=== PATIENT | female | born 1940 | race Caucasian/White ===

== ENCOUNTER 2016-10-24 15:21 | Emergency (ER) | payer OTHER ==
[2016-10-24] MEDS ORDERED: NS 0.9% 1000 ML* 1,000 ML IV ONE (15:50)
[2016-10-24] MEDS ORDERED: Acetaminophen TAB* 325 MG PO ONE (15:52)
[2016-10-24 16:13] LABS: Hematocrit 39 % (35-47); Hemoglobin 12.9 g/dl (12.0-16.0); Mean Corpuscular HGB Conc 34 g/dl (31-36); Mean Corpuscular Hemoglobin 31 pg (27-31); Mean Corpuscular Volume 93 fL (80-97); Mean Platelet Volume 8 um3 (7.4-10.4); Red Blood Count 4.14 10^6/ul (4.0-5.4); Red Cell Distribution Width 14 % (10.5-15)
--- NOTE | 2016-10-24 16:18 | ED ---
Dizziness - HPI Summary HPI Summary: Patient presents to ED for evaluation of dizziness which started yesterday after taking her newly prescribed medication Citalopram. Today after temple she took her dose again along with her BP medication and began to feel dizzy, with right sided pressure over frontal lobe and blurry vision. She immediately checked her BP (20 minutes after taking her BP medication) which was high. Patient was seen last February for a similar issue and BP at that time was 200/100. With medications, they were able to bring down the BP and discharge the patient home. Today, she is concerned for the same thing. She notes to 1x episode diarrhea yesterday, but nothing today. Denies N/V/C. Denies GREEN, but just notes to right sided pressure 2/10. Her PCP stated she may experience some blurry vision in the first few days of taking Citalopram, but for anything more concerning, she should come to ED. While she believe this is related to high BP, she notes it may also be d/t her new medication which she started yesterday. Otherwise feeling OK with no generalized malaise, cough, chest pressure or urinary symptoms. On arrival, BP 150/78. Patient is a diabetic. - History Of Current Complaint Chief Complaint: EDDizziness Stated Complaint: DIZZINESS,HIGH BP Time Seen by Provider: 10/24/16 15:39 Hx Obtained From: Patient Onset/Duration: Suddenly Timing: Minutes Severity Initially: Moderate Severity Currently: Moderate Character: Lightheaded, Dizzy Aggravating Factor(s): Headache - right sided pressure Alleviating Factor(s): Nothing Associated Signs And Symptoms: Positive: Visual Changes, Change In Medication - recently added citalopram - Risk Factors Cardiac Risk Factors: Hypertension, Diabetes, Elevated Lipids, Family History CVA Risk Factor: Hypertension, Diabetes - Allergies/Home Medications Allergies/Adverse Reactions: Allergies Allergy/AdvReac Type Severity Reaction Status Date / Time Codeine Allergy Intermediate Rash Verified 02/22/16 13:04 Penicillins [PCN] Allergy Rash Verified 02/22/16 13:04 PMH/Surg Hx/FS Hx/Imm Hx Previously Healthy: Yes Endocrine/Hematology History: Reports: Hx Diabetes Denies: Hx Anticoagulant Therapy, Hx Thyroid Disease Cardiovascular History: Reports: Hx Hypertension Denies: Hx Congestive Heart Failure, Hx Deep Vein Thrombosis, Hx Myocardial Infarction, Hx Pacemaker/ICD Respiratory History: Denies: Hx Asthma, Hx Chronic Obstructive Pulmonary Disease (COPD), Hx Lung Cancer, Hx Pneumonia, Hx Pulmonary Embolism GI History: Denies: Hx Gall Bladder Disease, Hx Gastrointestinal Bleed, Hx Ulcer, Hx Urosepsis History: Denies: Hx Kidney Stones, Hx Renal Disease Musculoskeletal History: Reports: Hx Arthritis, Hx Back Problems, Hx Orthopedic Injury - L knee Sensory History: Reports: Hx Contacts or Glasses, Hx Hearing Aid Opthamlomology History: Reports: Hx Contacts or Glasses Neurological History: Reports: Hx Headaches Denies: Hx Dementia, Hx Migraine, Hx Seizures, Hx Transient Ischemic Attacks (TIA) Psychiatric History: Denies: Hx Anxiety, Hx Depression, Hx Schizophrenia, Hx Bipolar Disorder - Cancer History Hx Chemotherapy: No Hx Radiation Therapy: No - Surgical History Surgery Procedure, Year, and Place: RIGHT HIP REPAIR 6YRS AGO. LEFT KNEE REPLACEMENT 1 YEAR AGO; 4 c sections; left rotator cuff; tubal ligation Infectious Disease History: No Infectious Disease History: Denies: Hx Clostridium Difficile, Hx Human Immunodeficiency Virus (HIV), Hx of Known/Suspected MRSA, Hx Shingles, Hx Tuberculosis, Hx Known/Suspected VRE, Hx Known/Suspected VRSA, History Other Infectious Disease, Traveled Outside the [place] in Last 30 Days - Family History Known Family History: Positive: Cardiac Disease, Diabetes - Social History Occupation: Retired Lives: With Family Alcohol Use: None Hx Substance Use: No Substance Use Type: Reports: None Hx Tobacco Use: Yes Smoking Status (MU): Former Smoker Type: Cigarettes Amount Used/How Often: 1ppd Length of Time of Smoking/Using Tobacco: 5 years Have You Smoked in the Last Year: No Review of Systems Constitutional: Negative Positive: Blurred Vision ENT: Negative Cardiovascular: Negative Respiratory: Negative Positive: no symptoms reported, see HPI Skin: Negative Positive: Headache - right sided pressure , Weakness - dizziness Psychological: Normal All Other Systems Reviewed And Are Negative: Yes Physical Exam Triage Information Reviewed: Yes Vital Signs On Initial Exam: Initial Vitals Temp Pulse Resp BP Pulse Ox 97.9 F 92 16 133/75 100 10/24/16 15:31 10/24/16 15:31 10/24/16 15:31 10/24/16 15:31 10/24/16 15:31 Vital Signs Reviewed: Yes Appearance: Positive: Well-Appearing, No Pain Distress, Well-Nourished Skin: Positive: Warm, Skin Color Reflects Adequate Perfusion Head/Face: Positive: Normal Head/Face Inspection Eyes: Positive: EOMI, RITIKA, Conjunctiva Clear, Other: - cataracts Neck: Positive: Nontender, No Lymphadenopathy Respiratory/Lung Sounds: Positive: Breath Sounds Present Cardiovascular: Positive: Normal, RRR Abdomen Description: Positive: Nontender Bowel Sounds: Positive: Present Musculoskeletal: Positive: Normal, Strength/ROM Intact Neurological: Positive: Sensory/Motor Intact, Alert, Oriented to Person Place, Time, Reflexes Intact, Normal Gait, Finger to Nose, Speech Normal Psychiatric: Positive: Normal AVPU Assessment: Alert - Herminia Coma Scale Best Eye Response: 4 - Spontaneous Best Motor Response: 6 - Obeys Commands Best Verbal Response: 5 - Oriented Coma Scale Total: 15 Diagnostics - Vital Signs Vital Signs Temp Pulse Resp BP Pulse Ox 10/24/16 16:10 97 10/24/16 16:09 16 10/24/16 16:08 97 148/66 10/24/16 16:07 94 20 148/66 97 10/24/16 16:04 74 18 109/83 97 10/24/16 16:00 77 19 130/64 97 10/24/16 15:44 83 97 10/24/16 15:43 150/68 10/24/16 15:31 97.9 F 92 16 133/75 100 - Laboratory Result Diagrams: 10/24/16 16:00 10/24/16 16:00 Lab Statement: Any lab studies that have been ordered have been reviewed, and results considered in the medical decision making process. Dizzy Course/Dx - Course Course Of Treatment: BP 150/78 on arrival. Patient still feeling right sided pressure over frontal lobe. Feeling dizzy. LABS ordered. Chest xray. All WNL. Tylenol 650mg for GREEN. Medications reviewed. DC Citalopram until you follow up with PCP. Patient agrees. BP WNL on discharge. - Diagnoses Differential Diagnosis/HQI/PQRI: Anxiety, Medication Reaction, Metabolic Abnormality Provider Diagnoses: Dizziness Discharge - Discharge Plan Condition: Stable Disposition: HOME Patient Education Materials: Lightheadedness (ED) Referrals: Anila Guerrero MD [Primary Care Provider] - Additional Instructions: Discontinue your dose of citalopram. Follow up with your PCP early next week. If you have worsening symptoms of lightheadedness or dizziness, return to ED immediately.
[2016-10-24 16:26] LABS: Albumin 4.1 g/dL (3.2-5.2); BUN/Creatinine Ratio 35.2 (8-20); Calcium 9.7 mg/dL (8.6-10.3); EGFR African American 102.9 (>60); Globulin 3.3 g/dL (2-4); Magnesium 1.5 mg/dL (1.9-2.7); Potassium 3.7 mmol/L (3.5-5.0); Total Bilirubin 0.4 mg/dL (0.2-1.0); Total Protein 7.4 g/dL (6.4-8.9); Troponin I 0.01 ng/mL (<0.04)
--- NOTE | 2016-10-24 16:45 | RAD ---
Indication: Dizziness. Single frontal view of the chest performed at 1605 hours was reviewed. Comparison is made with previous exam dated October 26, 2013. No mediastinal shift is noted. Heart is of normal size and configuration. Lung ugarte appear clear. IMPRESSION: NO ACTIVE CARDIOPULMONARY DISEASE IS NOTED.
[2016-10-24 17:10] LABS: TSH (Thyroid Stimulating Horm) 4.24 mcIU/mL (0.34-5.60)
[2016-10-24 17:50] VITALS: BP 131/62
== END 2016-10-24 17:49 | disposition home or self-care (01) ==
LOC: ED 15:21
DX: R42 Dizziness and giddiness (principal); R51 Headache; R53.1 Weakness
CPT/HCPCS: 36415; 71010; 80053; 82550; 83605; 83735; 84443; 84484; 85025; 85610; 93005; 99283; A9270-GY

== ENCOUNTER 2017-01-04 08:08 | Day surgery (SDC) | payer OTHER ==
[~2017-01-04 08:08] MED LIST: Lidocaine 1% INJ* 10 MG/ML 30 ML SDV ONE
[2017-01-04] MEDS ORDERED: Buffered Lidocaine 1% SYRIN* 5 ML/SYR SYRINGE ONE (08:43)
[2017-01-04] MEDS ORDERED: fentaNYL* 50 MCG/ML 2 ML VIAL (100 MCG VIAL) ONE (10:29)
[2017-01-04] MEDS ORDERED: Midazolam* 1 MG/ML 2 ML VIAL (2 MG) ONE (10:29)
[2017-01-04 10:59] VITALS: BP 132/76
--- NOTE | 2017-01-05 03:15 | OP ---
OPERATIVE REPORT: DATE OF OPERATION: 01/04/17 - LYDIA DATE OF : 40 SURGEON: Vanessa Dalton MD FORMATION FRACTURING OPERATOR: MAREK Feliz ANESTHESIOLOGIST: Giles Dupree MD ANESTHESIA: Local MAC. PRE-OP DIAGNOSES: Right carpal tunnel syndrome. POST-OP DIAGNOSES: Right carpal tunnel syndrome. OPERATIVE PROCEDURE: Right carpal tunnel release. ESTIMATED BLOOD LOSS: Zero. TOURNIQUET TIME: About 8 minutes. INDICATIONS FOR PROCEDURE: Xuan is a 76-year-old female with numbness and tingling in the median nerve distribution of her right hand. She presents for right carpal tunnel release. DESCRIPTION OF PROCEDURE: The patient was brought to the operating room. She was given a sedation anesthetic and a local infiltration of 10 cc of 1% plain lidocaine. The skin of her right hand and forearm was prepped and draped in the usual sterile fashion. The hand and forearm were exsanguinated and the tourniquet elevated to 250 mmHg. A longitudinal incision was made in the palm in line with the ring finger. We dissected through the subcutaneous tissue down to the transverse carpal ligament. The ligament was divided sharply with the knife and then more proximally with the scissors. The nerve was dissected free from the surrounding tissue and there is an area of moderate compression of the mid-portion of the ligament. The wound was irrigated. The skin edges were reapproximated with 4-0 nylon sutures. The wound was dressed with Xeroform , 4x4, Webril, and an Chun wrap. The patient tolerated the procedure well and was brought to the recovery room in good condition. [id number]/[facility] #: [id number] MTDPrasanth
== END 2017-01-04 11:22 | disposition home or self-care (01) ==
LOC: OREAST 08:08
PROVIDERS: ATTEND Orthopaedic Surgery
DX: G56.01 Carpal tunnel syndrome, right upper limb (principal); E11.9 Type 2 diabetes mellitus without complications; Z79.84 Long term (current) use of oral hypoglycemic drugs; I10 Essential (primary) hypertension; M19.90 Unspecified osteoarthritis, unspecified site
CPT/HCPCS: J2001; J2250; J3010

== ENCOUNTER 2018-01-06 10:28 | Emergency (ER) | payer MEDICARE ==
[2018-01-06 11:10] LABS: ABS Basophils 0.1 10^3/ul (0-0.2); ABS Eosinophils 0 10^3/ul (0-0.6); ABS Lymphocytes 1.7 10^3/ul (1.0-4.8); ABS Monocytes 0.5 10^3/ul (0-0.8); ABS Neutrophils 5.3 10^3/ul (1.5-7.7); ABS Nucleated RBC 0 10^3/ul; Eosinophil % 0.6 % (0-6); Hematocrit 39 % (35-47); Hemoglobin 13.2 g/dl (12.0-16.0); Lymphocyte % 22.1 % (25-47); Mean Corpuscular HGB Conc 34 g/dl (31-36); Mean Corpuscular Hemoglobin 32 pg (27-31); Mean Corpuscular Volume 94 fL (80-97); Mean Platelet Volume 7.4 um3 (7.4-10.4); Nucleated Red Blood Cells % 0; Platelet Count 260 10^3/ul (150-450); Red Cell Distribution Width 15 % (10.5-15); White Blood Count 7.5 10^3/ul (3.5-10.8)
[2018-01-06] MEDS ORDERED: Meclizine TAB* 12.5 MG PO ONE (11:15)
--- NOTE | 2018-01-06 11:32 | RAD ---
HISTORY: Dizziness COMPARISONS: December 29, 2017 VIEWS: 4: Frontal dual-energy and lateral views of the chest. FINDINGS: CARDIOMEDIASTINAL SILHOUETTE: The cardiomediastinal silhouette is normal. JASON: The jason are normal. PLEURA: The costophrenic angles are sharp. No pleural abnormalities are noted. LUNG PARENCHYMA: The lungs are clear. ABDOMEN: The upper abdomen is clear. There is no subphrenic gas. BONES AND SOFT TISSUES: No bone or soft tissue abnormalities are noted. OTHER: None. IMPRESSION: NO ACTIVE CARDIOPULMONARY DISEASE.
[2018-01-06] MEDS ORDERED: Magnesium Oxide TAB* 400 MG PO ONE (11:51)
--- NOTE | 2018-01-06 11:51 | RAD ---
HISTORY: Dizziness COMPARISONS: October 26, 2013 TECHNIQUE: Multiple contiguous axial CT scans were obtained of the head without intravenous contrast. FINDINGS: HEMORRHAGE/INFARCT: There is no hemorrhage or acute infarct. MASSES/SHIFT: There is no mass or shift. 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 SULCI AND VENTRICLES: The sulci and ventricles are normal in size and position for the patient's stated age. CEREBRUM: There is hypoattenuation of the periventricular and subcortical white matter. BRAINSTEM: There are no focal parenchymal abnormalities. CEREBELLUM: There are no focal parenchymal abnormalities. VESSELS: There is calcification of the cavernous segments of the internal carotid arteries bilaterally. PARANASAL SINUSES: The paranasal sinuses are clear. ORBITS: The orbits are unremarkable. BONES AND SOFT TISSUE: No bone or soft tissue abnormalities are noted. OTHER: None IMPRESSION: 1. NO ACUTE INTRACRANIAL PATHOLOGY. 2. CHRONIC SMALL VESSEL ISCHEMIC CHANGE
--- NOTE | 2018-01-06 12:55 | ED ---
Evangelista Chambers Rebecca, scribed for Gualberto Osman MD on 01/06/18 at 1113 . Dizziness - HPI Summary HPI Summary: Pt is a 77 y/o F who presents to ED c/o dizziness. Sx characterized as the room spinning and has been intermittent since onset. Daughter reports that yesterday "her pupils went wide then back to normal" then the dizziness began. Sx aggravated by sitting up and walking, alleviated by nothing. Additionally c/o frontal and occipital GREEN and mild nausea. Tennille ear pain. No recent illnesses. The pt was scheduled to have back surgery with Dr. Zambrano yesterday, though was unable to due to the dizziness. Yesterday, she was given fluids and ate which slightly improved symptoms. - History Of Current Complaint Chief Complaint: EDDizziness Stated Complaint: DIZZINESS Time Seen by Provider: 01/06/18 10:35 Hx Obtained From: Patient, Family/Scada Engineer - Daughter Onset/Duration: Still Present Timing: Intermittent Episode Lasting Character: Room Spinning Aggravating Factor(s): Position Change - Sitting up, Other - Walking Alleviating Factor(s): Nothing Associated Signs And Symptoms: Positive: Nausea - Allergies/Home Medications Allergies/Adverse Reactions: Allergies Allergy/AdvReac Type Severity Reaction Status Date / Time codeine Allergy Intermediate Rash, Verified 01/05/18 09:45 nausea and vomiting Penicillins Allergy Unknown Rash Verified 01/05/18 09:45 Home Medications: Home Medications Aspirin EC TAB* [Ecotrin EC Low Dose 81 MG*] 81 mg PO DAILY 01/06/18 [History Confirmed 01/06/18] Cyanocobalamin TAB* [Vitamin B12 TAB*] 1,000 mcg PO DAILY 01/06/18 [History Confirmed 01/06/18] Dorzolamide/Timolol OPTH (NF) [Cosopt (NF)] 1 drop BOTH EYES BID 01/06/18 [ History Confirmed 01/06/18] Lisinopril TAB* [Prinivil TAB*] 40 mg PO DAILY 01/06/18 [History Confirmed 01/06] Simvastatin (NF) [Zocor (NF)] 40 mg PO DAILY 01/06/18 [History Confirmed ] amLODIPine TAB* [Norvasc 5 mg TAB*] 5 mg PO DAILY 01/06/18 [History Confirmed ] PMH/Surg Hx/FS Hx/Imm Hx Endocrine/Hematology History: Reports: Hx Diabetes - type 2, on pills Denies: Hx Anticoagulant Therapy, Hx Thyroid Disease Cardiovascular History: Reports: Hx Hypertension - on meds Denies: Hx Congestive Heart Failure, Hx Deep Vein Thrombosis, Hx Myocardial Infarction, Hx Pacemaker/ICD, Other Cardiovascular Problems/Disorders Respiratory History: Denies: Hx Asthma, Hx Chronic Obstructive Pulmonary Disease (COPD), Hx Lung Cancer, Hx Pneumonia, Hx Pulmonary Embolism GI History: Denies: Hx Gall Bladder Disease, Hx Gastrointestinal Bleed, Hx Ulcer, Hx Urosepsis, Other GI Disorders History: Denies: Hx Kidney Stones, Hx Renal Disease Musculoskeletal History: Reports: Hx Arthritis - back hips, Hx Back Problems, Hx Orthopedic Injury - L knee Denies: Other Musculoskeletal History Sensory History: Reports: Hx Cataracts - both eyes, Hx Contacts or Glasses - glasses, Hx Hearing Aid - both ears Opthamlomology History: Reports: Hx Cataracts - both eyes, Hx Contacts or Glasses - glasses Neurological History: Reports: Hx Headaches Denies: Hx Dementia, Hx Migraine, Hx Seizures, Hx Transient Ischemic Attacks (TIA) Psychiatric History: Denies: Hx Anxiety, Hx Depression, Hx Panic Disorder, Hx Schizophrenia, Hx Bipolar Disorder - Cancer History Hx Chemotherapy: No Hx Radiation Therapy: No - Surgical History Surgery Procedure, Year, and Place: RIGHT HIP REPAIR ( ALL HARDWARE REMOVED) 6YRS AGO. LEFT KNEE REPLACEMENT 2011, [facility] 4 c sections;. left rotator cuff. tubal ligation, 47 yrs ago. rt carpal tunnel repair Hx Anesthesia Reactions: No Infectious Disease History: No Infectious Disease History: Denies: Hx Clostridium Difficile, Hx Human Immunodeficiency Virus (HIV), Hx of Known/Suspected MRSA, Hx Shingles, Hx Tuberculosis, Hx Known/Suspected VRE, Hx Known/Suspected VRSA, History Other Infectious Disease, Traveled Outside the [place] in Last 30 Days - Family History Known Family History: Positive: Cardiac Disease, Diabetes - Social History Alcohol Use: None Alcohol Amount: 1 per 2 months Hx Substance Use: No Substance Use Type: Reports: None Hx Tobacco Use: Yes Smoking Status (MU): Former Smoker Type: Cigarettes Amount Used/How Often: 1ppd x 2 yrs Length of Time of Smoking/Using Tobacco: 5 years Have You Smoked in the Last Year: No Review of Systems Negative: Fever Negative: Ear Ache Positive: Nausea Neurological: Other - Dizziness Positive: Headache All Other Systems Reviewed And Are Negative: Yes Physical Exam - Summary Physical Exam Summary: VITAL SIGNS: Reviewed. GENERAL: ~Patient is a well-developed and nourished female who is lying comfortable in the stretcher. ~Patient is not in any acute respiratory distress. HEAD AND FACE: No signs of trauma. ~No ecchymosis, hematomas or skull depressions. No sinus tenderness. EYES: PERRLA, EOMI x 2, No injected conjunctiva, no nystagmus. No photophobia. EARS: Hearing grossly intact. Ear canals and tympanic membranes are within normal limits. MOUTH: Oropharynx within normal limits. NECK: Supple, trachea is midline, no adenopathy, no JVD, no carotid bruit, no c- spine tenderness, neck with full ROM. No meningeal signs, no Kernig's or brudzinskis signs. CHEST: Symmetric, no tenderness at palpation LUNGS: Clear to auscultation bilaterally. No wheezing or crackles. CVS: Regular rate and rhythm, S1 and S2 present, no murmurs or gallops appreciated. ABDOMEN: Soft, non-tender. No signs of distention. No rebound no guarding, and no masses palpated. Bowel sounds are normal. EXTREMITIES: FROM in all major joints, no edema, no cyanosis or clubbing. NEURO: Alert and oriented x 3. No acute neurological deficits. Speech is normal and follows commands. SKIN: Dry and warm GCS: 15 Triage Information Reviewed: Yes Vital Signs On Initial Exam: Initial Vitals Temp Pulse Resp BP Pulse Ox 98.5 F 86 18 170/108 97 01/06/18 10:29 01/06/18 10:29 01/06/18 10:29 01/06/18 10:29 01/06/18 10:29 Vital Signs Reviewed: Yes Diagnostics - Vital Signs Vital Signs Temp Pulse Resp BP Pulse Ox 01/06/18 10:29 98.5 F 86 18 170/108 97 - Laboratory Lab Results: Lab Results 01/06/18 01/06/18 01/06/18 Range/Units 10:57 10:57 10:57 WBC 7.5 (3.5-10.8) 10^3/ul RBC 4.20 (4.0-5.4) 10^6/ul Hgb 13.2 (12.0-16.0) g/dl Hct 39 (35-47) % MCV 94 (80-97) fL MCH 32 H (27-31) pg MCHC 34 (31-36) g/dl RDW 15 (10.5-15) % Plt Count 260 (150-450) 10^3/ul MPV 7.4 (7.4-10.4) um3 Neut % (Auto) 69.6 (38-83) % Lymph % (Auto) 22.1 L (25-47) % Hood % (Auto) 6.9 (0-7) % Eos % (Auto) 0.6 (0-6) % Baso % (Auto) 0.8 (0-2) % Absolute Neuts (auto) 5.3 (1.5-7.7) 10^3/ul Absolute Lymphs (auto) 1.7 (1.0-4.8) 10^3/ul Absolute Monos (auto) 0.5 (0-0.8) 10^3/ul Absolute Eos (auto) 0 (0-0.6) 10^3/ul Absolute Basos (auto) 0.1 (0-0.2) 10^3/ul Absolute Nucleated RBC 0 10^3/ul Nucleated RBC % 0 Sodium 140 (139-145) mmol/L Potassium 3.9 (3.5-5.0) mmol/L Chloride 107 (101-111) mmol/L Carbon Dioxide 25 (22-32) mmol/L Anion Gap 8 (2-11) mmol/L BUN 17 (6-24) mg/dL Creatinine 0.64 (0.51-0.95) mg/dL Est GFR ( Amer) 115.7 (>60) Est GFR (Non-Af Amer) 90.0 (>60) BUN/Creatinine Ratio 26.6 H (8-20) Glucose 133 H (70-100) mg/dL Lactic Acid 1.0 (0.5-2.0) mmol/L Calcium 9.8 (8.6-10.3) mg/dL Magnesium 1.8 L (1.9-2.7) mg/dL Total Bilirubin 0.40 (0.2-1.0) mg/dL AST 25 (13-39) U/L ALT 21 (7-52) U/L Alkaline Phosphatase 64 (34-104) U/L Total Creatine Kinase 118 (10-223) U/L Troponin I 0.00 (<0.04) ng/mL C-Reactive Protein 3.88 (< 5.00) mg/L B-Natriuretic Peptide ( - 100) pg/mL Total Protein 7.2 (6.4-8.9) g/dL Albumin 4.1 (3.2-5.2) g/dL Globulin 3.1 (2-4) g/dL Albumin/Globulin Ratio 1.3 (1-3) TSH 2.29 (0.34-5.60) mcIU/mL Serum Alcohol < 10 (<10) mg/dL / Range/Units 10:57 WBC (3.5-10.8) 10^3/ul RBC (4.0-5.4) 10^6/ul Hgb (12.0-16.0) g/dl Hct (35-47) % MCV (80-97) fL MCH (27-31) pg MCHC (31-36) g/dl RDW (10.5-15) % Plt Count (150-450) 10^3/ul MPV (7.4-10.4) um3 Neut % (Auto) (38-83) % Lymph % (Auto) (25-47) % Hood % (Auto) (0-7) % Eos % (Auto) (0-6) % Baso % (Auto) (0-2) % Absolute Neuts (auto) (1.5-7.7) 10^3/ul Absolute Lymphs (auto) (1.0-4.8) 10^3/ul Absolute Monos (auto) (0-0.8) 10^3/ul Absolute Eos (auto) (0-0.6) 10^3/ul Absolute Basos (auto) (0-0.2) 10^3/ul Absolute Nucleated RBC 10^3/ul Nucleated RBC % Sodium (139-145) mmol/L Potassium (3.5-5.0) mmol/L Chloride (101-111) mmol/L Carbon Dioxide (22-32) mmol/L Anion Gap (2-11) mmol/L BUN (6-24) mg/dL Creatinine (0.51-0.95) mg/dL Est GFR ( Amer) (>60) Est GFR (Non-Af Amer) (>60) BUN/Creatinine Ratio (8-20) Glucose (70-100) mg/dL Lactic Acid (0.5-2.0) mmol/L Calcium (8.6-10.3) mg/dL Magnesium (1.9-2.7) mg/dL Total Bilirubin (0.2-1.0) mg/dL AST (13-39) U/L ALT (7-52) U/L Alkaline Phosphatase (34-104) U/L Total Creatine Kinase (10-223) U/L Troponin I (<0.04) ng/mL C-Reactive Protein (< 5.00) mg/L B-Natriuretic Peptide 68 ( - 100) pg/mL Total Protein (6.4-8.9) g/dL Albumin (3.2-5.2) g/dL Globulin (2-4) g/dL Albumin/Globulin Ratio (1-3) TSH (0.34-5.60) mcIU/mL Serum Alcohol (<10) mg/dL Result Diagrams: 01/06/18 10:57 01/06/18 10:57 Lab Statement: Any lab studies that have been ordered have been reviewed, and results considered in the medical decision making process. - Radiology CXR Xray Interpretation: No Acute Changes - NO ACTIVE CARDIOPULMONARY DISEASE. ED physician reviewed this radiology report. Radiology Interpretation Completed By: Radiologist - CT Brain CT CT Interpretation: No Acute Changes - 1. NO ACUTE INTRACRANIAL PATHOLOGY. 2. CHRONIC SMALL VESSEL ISCHEMIC CHANGE ED physician reviewed this radiology report. CT Interpretation Completed By: Radiologist - EKG 1043 Cardiac Rate: NL - 74 bpm EKG Rhythm: Sinus Rhythm EKG Interpretation: No ST elevations, normal axis Re-Evaluation - Re-Evaluation First Eval Re-Evaluation Time: 12:51 Change: Improved Comment: Pt is feeling significantly better. Discussed results. Dizzy Course/Dx - Course Assessment/Plan: This patient is a 77-year-old female who presents to the emergency department with chief complaint of having dizziness. The patient reports that her dizziness is like the room is spinning. The patient had an episode of the same symptoms yesterday for which she was seen by the hospitalist and they determined that the patient was dehydrated. Test results without any significant abnormality except for glucose of 133 and magnesium 1.8. Chest x-ray impression: No acute pathology. Initially the patient was placed in a monitoring and evaluation advisor, IV access was obtained. The patient was given magnesium by mouth. The patient also was given meclizine. Head CT impression: No acute intracranial pathology. Chronic small vessel ischemic change. A reassessment the patient reports that she is feeling better but not completely well. I believe that her symptoms are secondary to her vertigo therefore the patient will be discharged home with a prescription for meclizine. She was also instructed to return to the emergency room if the dizziness become worse, she develops any headache double vision or blurred vision, chest pain or palpitations. She understands and agrees - Diagnoses Differential Diagnosis/HQI/PQRI: Benign Paroxysmal Positional Vertigo, Coronary Artery Disease, Labyrinthitis, Meniere's Disease, Transient Ischemic Attack Provider Diagnoses: Vertigo Discharge - Sign-Out/Discharge Documenting (check all that apply): Discharge/Admit/Transfer - Discharge - Discharge Plan Condition: Stable Disposition: HOME Prescriptions: Meclizine TAB* [Antivert 12.5 TAB*] 25 mg PO TID PRN #30 tab PRN Reason: Vertigo Patient Education Materials: Vertigo (ED) Referrals: Anila Guerrero MD [Primary Care Provider] - 3 Days Additional Instructions: RETURN TO ED FOR ANY NEW OR WORSENING SYMPTOMS. - Billing Disposition and Condition Condition: STABLE Disposition: HOME The documentation as recorded by the Evangelista ware Rebecca accurately reflects the service I personally performed and the decisions made by , Gualberto Osman MD.
[2018-01-06 13:04] VITALS: BP 150/85
== END 2018-01-06 13:17 | disposition home or self-care (01) ==
LOC: ED 10:28
DX: R42 Dizziness and giddiness (principal); R51 Headache; Z87.891 Personal history of nicotine dependence; E11.9 Type 2 diabetes mellitus without complications; Z79.84 Long term (current) use of oral hypoglycemic drugs; I10 Essential (primary) hypertension; M19.90 Unspecified osteoarthritis, unspecified site; Z79.899 Other long term (current) drug therapy
CPT/HCPCS: 36415; 70450; 71046; 80053; 80320; 82550; 83605; 83735; 83880; 84443; 84484; 85025; 86140; 93005; 99283; A9270-GY; G0480

== ENCOUNTER 2018-04-13 06:05 | Inpatient (IN) | payer MEDICARE ==
[~2018-04-13 06:05] MED LIST changes: +Buffered Lidocaine 0.9% SYRIN* 5 ML/SYR SYRINGE INTRADERM ONE; +Famotidine IV* 10 MG/ML 2 ML (20 mg) IV ONE; -Lidocaine 1% INJ* 10 MG/ML 30 ML SDV ONE; +Vancomycin(*) 1,250 MG in NS 0.9% 250 ML* 250 ML IVPB SCH
[2018-04-13] MEDS ORDERED: Famotidine IV* 10 MG/ML 2 ML (20 mg) ONE (06:10)
[2018-04-13] MEDS ORDERED: Rocuronium* 10 MG/ML VIAL ONE (07:06)
[2018-04-13] MEDS ORDERED: Propofol* 10 MG/ML 20 ML BTL IV PUSH ONE (07:06)
[2018-04-13] MEDS ORDERED: Lidocaine 2% PF * 5 ML VIAL ONE (07:06)
[2018-04-13] MEDS ORDERED: fentaNYL* 50 MCG/ML 2 ML VIAL (100 MCG VIAL) ONE ×3 (07:07→12:55)
[2018-04-13] MEDS ORDERED: Midazolam* 1 MG/ML 2 ML VIAL (2 MG) ONE (07:07)
[2018-04-13] MEDS ORDERED: Lidocaine 1% MPF wEPI 200,000* 30 ML SDV ONE (07:10)
[2018-04-13] MEDS ORDERED: Thrombin 5,000 UNITS* 1 APPLIC KIT - topical use - TOPICAL ONE (07:11)
[2018-04-13] MEDS ORDERED: Bacitracin IV* 50,000 UNITS INJ ONE (07:11)
[2018-04-13] MEDS ORDERED: ceFAZolin 2 GM PREMIX in ORs 2 GM/50 ML BAG IVPB ONE ×2 (07:19→12:04)
[2018-04-13] MEDS ORDERED: oxyCODONE/Acetamin 5/325 MG* TAB PO PRN (07:38)
[2018-04-13] MEDS ORDERED: Naloxone* 0.4 MG/ML 1 ML VIAL IV PRN (07:38)
[2018-04-13] MEDS ORDERED: HYDROcodone/ACETAMIN 5-325 MG* 1 TAB PO PRN (07:38)
[2018-04-13] MEDS ORDERED: PROCHLORPERAZINE INJ 5 MG/ML 2 ML VIAL IV PRN (07:38)
[2018-04-13] MEDS ORDERED: Gelfoam 12-7 ADSORBABL SPONGE* 1 EA SPONGE ONE (07:49)
[2018-04-13] MEDS ORDERED: Gelfoam Sponge SIZE 100* SPONGE ONE (07:50)
[2018-04-13] MEDS ORDERED: EPHEDrine (Pressors)* 50 MG/ML VIAL ONE (08:21)
[2018-04-13] MEDS ORDERED: Phenylephrine INJ* 10 MG/ML 1 ML VIAL (10 MG) ONE (08:24)
[2018-04-13] MEDS ORDERED: Ondansetron INJ* 2 MG/ML VIAL ONE (10:43)
[2018-04-13] MEDS ORDERED: DiMENhydriNATE IV* 50 MG/ML VIAL ONE (10:43)
[2018-04-13] MEDS ORDERED: Acetaminophen TAB* 325 MG PO PRN (12:05)
[2018-04-13] MEDS ORDERED: Magnesium Hydroxide LIQ* 30 ML UDC PO PRN (12:05)
[2018-04-13] MEDS ORDERED: PROCHLORPERAZINE INJ 5 MG/ML 2 ML VIAL ONE (12:38)
[2018-04-13] MEDS: fentaNYL* 50 MCG/ML 2 ML VIAL (100 MCG VIAL) IV PRN ×2 (12:56→13:15)
--- NOTE | 2018-04-13 13:37 | RAD ---
INDICATION: Lumbar discectomy. COMPARISON: November 03, 2017 MRI. TECHNIQUE: 35.3 seconds fluoroscopy. FINDINGS: Spot images document instruments from the level of the L3-L4 through L5-S1 level. IMPRESSION: Interoperative control films. CPT II Codes: G9500
[2018-04-13] MEDS: HYDROcodone/ACETAMIN 5-325 MG* 1 TAB PO PRN (15:14)
--- NOTE | 2018-04-13 15:22 | CONS ---
[facility] MEDICINE CONSULTATION REPORT: DATE OF CONSULT: 04/13/18 PROVIDER: Mckenzie Mtz NP ATTENDING PHYSICIAN: Dr. Zambrano. CONSULTING PHYSICIAN: Dr. Gracy Pendleton (dictated by Mckenzie Mtz NP). REASON FOR CONSULT: Hypertension and diabetes. HISTORY OF PRESENT ILLNESS: Ms. Peters is a 77-year-old female with a past medical history significant for hypertension, diabetes, hyperlipidemia, glaucoma , who presented for an elective laminectomy L3-S1 with Dr. Zambrano. Please see dictated H and P from Dr. Zambrano for complete details. In brief, the patient had ongoing lower back pain radiating to her left leg and opted for an elective lumbar decompression laminectomy L3-S1. In the immediate postoperative period, the patient is complaining of some mild nausea. She has no other complaints. Denies any chest pain or shortness of breath. Denies any dizziness or headache. She does complain of mild throat pain. She denies any vomiting. She denies any recent illnesses or sick contacts. PAST MEDICAL HISTORY: Significant for, 1. Hyperlipidemia. 2. Diabetes. 3. Glaucoma. 4. Hypertension. 5. Diverticulosis history. PAST SURGICAL HISTORY: 1. Right hip replacement. 2. x4. 3. Right ear canaloplasty. 4. Left carpal tunnel release. 5. Bilateral cataract surgeries. 6. Left total knee arthroplasty. 7. Left shoulder rotator cuff repair. 8. Tonsillectomy. 9. Appendectomy. HOME MEDICATIONS: Include, 1. Metformin 850 mg p.o. b.i.d. 2. Amlodipine 2.5 mg p.o. daily. 3. Travatan Z 0.004% one drop both eyes q.p.m. 4. Simvastatin 40 mg p.o. q.p.m. 5. Multivitamin 1 p.o. daily. 6. Meclizine 25 mg p.o. t.i.d. p.r.n. dizziness. 7. Lisinopril 40 mg p.o. q.a.m. 8. Ibuprofen 400 mg p.o. q.6 hours as needed. 9. Cosopt 1 drop both eyes b.i.d. 10. Vitamin B12 1000 mcg p.o. q.a.m. 11. Aspirin 81 mg p.o. daily. 12. Cblunpahyoia-wvogdpbwqbfr-xlvjwffjb 1 drop b.i.d. ALLERGIES: Allergic to PENICILLIN, CODEINE, and IV IMODIUM. FAMILY HISTORY: Father with history of an NE and at age 52 from an NE. No reported history of diabetes or cancer within the family. SOCIAL HISTORY: The patient is a former smoker a very long time ago in her 20s and she smoked for approximately 2 years. She denies any history of illicit drug use. She does drink an occasional glass of wine. 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 Surrogate decision maker in the event she is unable to make her own decisions is her daughter, Laura. Her phone number is [phone]. She is a full code. REVIEW OF SYSTEMS: General: There was no fever. No unintended weight loss. Cardiac: No chest pain or edema. Respiratory: Denies any cough, congestion, hemoptysis, or shortness of breath. GI: Denies any vomiting. Does report some mild nausea postoperatively. Denies any diarrhea or abdominal pain. : Denies any hematuria or dysuria. Neurologic: She denies any focal weakness or sensory losses. Eyes: Denies any visual changes. ENT: Denies any dysphagia. Musculoskeletal: No arthralgias or myalgias. Skin: Denies any rashes or lesions. Psych: She denies any depression or anxiety. PHYSICAL EXAM: Vital Signs: Temperature was 97.4, heart rate was 86, respirations were 20, O2 saturation 96%, blood pressure 115/60. General: Ms. Peters is resting in the bed. She appears comfortable, in no acute distress. She does complain of mild back soreness. Neuro: She is alert and oriented x3. She is able to move all extremities. Pedal pulses are +2 bilaterally. Heart : S1, S2. Regular rate and rhythm. Lungs are clear to auscultation bilaterally with no accessory muscle use. Abdomen is soft and nontender. Bowel sounds are present x4. Extremities: There is no cyanosis or edema. Pedal pulses again are +2 bilaterally. Equal strength is noted in all 4 extremities. DIAGNOSTIC STUDIES/LAB DATA: Preoperatively on 04/06/18, WBCs 8.9, RBCs 4.09, hemoglobin 12.8, hematocrit was 38, platelet count was 290. INR was 0.97, PTT was 27.2. Sodium 141, potassium 4.0, chloride 106, carbon dioxide 28, anion gap of 7, BUN was 22, creatinine 0.60, glucose was 125. A1c was 7.2. IMPRESSION AND PLAN: Ms. Peters is a 77-year-old female with past medical history significant for diabetes, hypertension, hyperlipidemia, and glaucoma, who presented for an elective decompressive laminectomy, L3-S1. In the immediate postoperative period, she has only mild complaint of postop nausea. Our recommendations are as follows: 1. Status post decompressive laminectomy. Management per Neurosurgery. PT/OT per Neurosurgery. Dressing per Neurosurgery. Pain management per Neurosurgery. 2. Hypertension. I would continue her on lisinopril. I will start that tomorrow morning as her SBP is 115. 3. Diabetes. I would recommend fingersticks a.c. and resume metformin tomorrow when the patient is tolerating her diet. 4. Hyperlipidemia. She should continue on her Lipitor. 5. Glaucoma. She should continue her home eye drops. 6. DVT prophylaxis: As per Neurosurgery. 7. Code status: She is a full code. TIME SPENT: Time spent on this consultation was approximately 45 minutes in the consultation of this patient, more than half the time was spent at the bedside reviewing events leading thus far to her hospitalization, performing physical exam, and reviewing my plan of care. I have discussed this with my attending, Dr. Gracy Pendleton, she is in agreement with my plan. MCKENZIE MTZ, [place] [id number]/[facility] #: [id number] [facility] PARTNERSPrasanth
[2018-04-13] MEDS: Ondansetron INJ* 2 MG/ML VIAL IV PRN (17:56)
[2018-04-13] MEDS: Insulin LISPRO* 1 UNITS UNIT SUBCUT SCH ×2 (17:56→21:00)
[2018-04-13] MEDS ORDERED: Latanoprost 0.005%* 2.5 ml BTL BOTH EYES SCH (18:00)
[2018-04-13] MEDS ORDERED: Atorvastatin* 20 MG TAB PO SCH (18:00)
--- NOTE | 2018-04-13 20:43 | OP ---
DATE OF OPERATION: 04/13/18 - ROOM #351 DATE OF : 40 SURGEON: Arlene Zambrano MD VIDEO SOFTWARE ENGINEER: MAREK Ram. Case was done with assistance of a surgical PA because of the complexity of the case. ANESTHESIA: General. PRE-OP DIAGNOSES: 1. L3-4, L4-5, L5-S1 stenosis. 2. Degenerative disk disease. 3. Left L4-5 herniated nucleus pulposus. POST-OP DIAGNOSES: 1. L3-4, L4-5, L5-S1 stenosis. 2. Degenerative disk disease. 3. Left L4-5 herniated nucleus pulposus. OPERATIVE PROCEDURE: The patient underwent minimally invasive decompressive laminectomy L3, L4, and L5 with left L4-5 diskectomy and multilevel foraminotomies. INDICATIONS: The patient is a very pleasant 77-year-old female with a history of multiple medical comorbidities with complaints of back pain radiating into the left more than the right lower extremity with MRI findings consistent with scoliosis, multilevel degenerative disk disease, and multilevel stenosis. She was also offered the option of surgical intervention after failing conservative treatment modalities. After explaining expectations, limitations, possible complications of the procedure with complications to include, but not limited to bleeding, infections, risk of injury to adjacent structures, coma, paralysis , , need for additional procedure, anesthesia risk, stroke, blindness, cancer, instability, hardware failure, adjacent level disease, spinal fluid leak , progression of kyphosis, anesthesia risk, need for additional procedure in the future. The patient understood that her condition may not improve. The patient was agreeable to proceed with surgery. Informed consent was obtained. The patient and her daughter understood that her condition may not improve and in fact may get worse after surgery and she may need to have additional procedure in the future. She also understood that operative plan may be modified according to the intraoperative findings and conditions. ESTIMATED BLOOD LOSS: 50 cc. COMPLICATIONS: None. DESCRIPTION OF PROCEDURE: The patient was brought to the operating room and was placed under general anesthesia by the anesthesia team. She was carefully positioned prone on Jim frame and all bony prominences were meticulously padded. Her skin was prepped and draped in a standard fashion. After appropriate surgical pause and patient identification, the correct operative level was identified with use of intraoperative fluoroscopic imaging, a small left paramedian incision was marked on the skin over the L3-S1 levels centered at the center of exposure and 26 mm incision was made after infiltrating the skin with local anesthetic. Incision was carried down with Bovie cautery, and after dividing the dorsal fascia, the METRx retractor system was introduced over series of dilators. The lamina of L5 was initially identified from the left side after bringing the operative microscope into the field and after removing the residual paraspinal musculature over the left virginie-lamina of the L5. A high-speed drill was used to fashion a complete laminectomy at L5, which was completed with the use of Kerrison punches. Ligamentum flavum was gently removed, and after extensive foraminotomies, copious irrigation was performed as well as confirmation of meticulous hemostasis and meticulous inspection. The tubular retractor system was moved cephalad over the left L4 virginie-lamina and a complete laminectomy was performed with the use high-speed drill and Kerrison punches. The ligamentum flavum was removed and after left L4-5 diskectomy was performed, extensive foraminotomies were performed. The left L4- 5 disk space was found to have significant disk herniation at the initial inspection, and after incising the annulus fibrosis and removal of herniated disk fragments with pituitary rongeurs, the dura and nerve roots were found to be free of any pressure phenomenon. After conformation of meticulous hemostasis and copious irrigation and meticulous inspection, the METRx tubular retractor was directed towards the L3 left virginie-lamina and the procedure was again repeated. Significant amount of stenosis was found in all 3 levels. After the completion of decompression, the thecal sac was found to be free and the nerve roots were found to be free of any pressure phenomenon, and after meticulous hemostasis was confirmed with meticulous irrigation as well as meticulous inspection, the tubular retractor was gently removed. A Ranjan drain was left in the wound and was tunneled through a separate stab wound incision. Incision was then closed by layers with 0 interrupted Vicryl sutures approximating the dorsal fascia, while 2-0 interrupted Vicryl suture approximating subcutaneous tissue while the skin was covered with Dermabond. A drain was secured with a 2-0 suture, and at the end of the procedure, all counts were reported to be correct. The patient remained hemodynamically stable throughout the case. At the end of the procedure, the patient was turned supine, was extubated, and was transferred to the recovery in excellent condition. The case was done with the assistance of surgical PA because of the complexity of the case. [id number]/[facility] #: [id number] [place]
[2018-04-13] MEDS: CMC:Dorzolamide/Timolol OPTH (NF) 10 ML BOT BOTH EYES SCH (20:56)
[2018-04-13] MEDS: [UNRECOGNIZED DRUG - OTHER] OPHTHALMIC SCH (21:00)
[2018-04-14] MEDS: HYDROcodone/ACETAMIN 5-325 MG* 1 TAB PO PRN (00:56)
[2018-04-14] MEDS: Ondansetron INJ* 2 MG/ML VIAL IV PRN (02:45)
[2018-04-14] MEDS: Insulin LISPRO* 1 UNITS UNIT SUBCUT SCH ×2 (08:52→12:47)
[2018-04-14] MEDS: [UNRECOGNIZED DRUG - OTHER] OPHTHALMIC SCH ×2 (08:56→13:27)
[2018-04-14] MEDS: CMC:Dorzolamide/Timolol OPTH (NF) 10 ML BOT BOTH EYES SCH (08:57)
[2018-04-14] MEDS ORDERED: Cyanocobalamin TAB* 500 MCG PO SCH (09:00)
[2018-04-14] MEDS ORDERED: Lisinopril TAB* 10 MG PO SCH (09:00)
[2018-04-14] MEDS ORDERED: amLODIPine TAB* 5 MG PO SCH (09:00)
--- NOTE | 2018-04-14 10:52 | PN ---
Progress Note - Progress Note Date of Service: 04/14/18 SOAP: Subjective: []No events ON. Patient tolerated the procedure well. Preop back and LE pain has resolved. Ambulates, Tolerates PO well, Voids. Wants to go home. Objective: [] VSS, Afebrile. Wound s,c,d. Drain output noted. Drain was removed. Catheter appeared to be intact. Patient tolerated the procedure well. AAOx3, RITIKA, CN II-XII grossly intact. Motor 5/5 all extremities Sensory grossly intact to light touch. Assessment: []77 yof POD#1 MIS L3-S1 decompression Plan: [] Monitor VS, Neurochecks PT/OT DC today Full instructions were given. Gabriel Zambrano MD
[2018-04-14 17:18] VITALS: BP 137/49
--- NOTE | 2018-04-19 00:39 | DS ---
DISCHARGE SUMMARY: DATE OF ADMISSION: 04/13/18 DATE OF DISCHARGE: 04/14/18 PROCEDURE: The patient underwent a minimally invasive L3, L4, and L5 laminectomies with left L4-L5 diskectomy, and multilevel foraminotomies. HOSPITAL COURSE: The patient is a very pleasant 77-year-old female with a history of multiple medical comorbidities with complaints of back pain radiating into the left more than the right lower extremity with MRI findings consistent with scoliosis, multilevel degenerative disk disease, and multilevel stenosis. After failing conservative treatment modalities, she was also offered the option of surgical intervention. The patient underwent the above procedure. She tolerated the procedure well, was extubated, and was transferred to the Recovery in excellent condition. The patient continued to improve on the 3rd postoperative day. The drain was removed. The patient was able to ambulate well, tolerate the p.o. well, void, and her preoperative back and lower extremity pain had completely resolved. She was able to be discharged to home. She was discharged to home with full discharge instructions. [id number]/[facility] #: [id number] [place]
== END 2018-04-14 17:00 | disposition home or self-care (01) | DRG 519 ==
LOC: AA 06:05 → SSU 14:20
PROVIDERS: ADMIT Neurological Surgery; ATTEND Neurological Surgery
PROC: 01NB0ZZ Release Lumbar Nerve, Open Approach (ICD-10-PCS; 2018-04-13)
PROC: 01NR0ZZ Release Sacral Nerve, Open Approach (ICD-10-PCS; 2018-04-13)
PROC: 0SB20ZZ Excision of Lumbar Vertebral Disc, Open Approach (ICD-10-PCS; principal; 2018-04-13 07:30)
DX: M51.17 Intervertebral disc disorders with radiculopathy, lumbosacral region (principal); Z68.41 Body mass index [BMI] 40.0-44.9, adult; M48.07 Spinal stenosis, lumbosacral region; E11.39 Type 2 diabetes mellitus with other diabetic ophthalmic complication; H42 Glaucoma in diseases classified elsewhere; I10 Essential (primary) hypertension; K57.90 Diverticulosis of intestine, part unspecified, without perforation or abscess without bleeding; Z96.652 Presence of left artificial knee joint; Z96.641 Presence of right artificial hip joint; M19.90 Unspecified osteoarthritis, unspecified site; M41.86 Other forms of scoliosis, lumbar region; E78.5 Hyperlipidemia, unspecified; M47.26 Other spondylosis with radiculopathy, lumbar region; E66.9 Obesity, unspecified; H40.10X0 Unspecified open-angle glaucoma, stage unspecified; H91.93 Unspecified hearing loss, bilateral; R11.0 Nausea; R07.0 Pain in throat; Z98.42 Cataract extraction status, left eye; Z98.41 Cataract extraction status, right eye; Z90.89 Acquired absence of other organs; Z88.8 Allergy status to other drugs, medicaments and biological substances; Z88.5 Allergy status to narcotic agent; Z88.0 Allergy status to penicillin; Z82.49 Family history of ischemic heart disease and other diseases of the circulatory system; Z81.8 Family history of other mental and behavioral disorders; Z83.49 Family history of other endocrine, nutritional and metabolic diseases; Z80.6 Family history of leukemia; Z87.891 Personal history of nicotine dependence
CPT/HCPCS: 76001; A9270-GY; G8978-GP-CI; G8979-GP-CI; G8980-GP-CI; G8987-GO-CJ; G8988-GO-CJ; G8989-GO-CJ; J0690; J0780; J1240; J2001; J2250; J2405; J2704; J3010; J3370

== ENCOUNTER 2019-10-23 10:15 | Emergency (ER) | payer MEDICARE ==
--- OUTSIDE RECORDS SUMMARY | 2019-10-23 10:25 | XMS REPORT | Summary of Care ---
:1940 Author Organization [facility] Address [address] [address] Care Team Providers Name Role Phone Anila Guerrero MD Primary Care Provider Reason for Visit Reason Comments Follow-up F/U Left hand pain. State's she can close her hand completely. No c/ o pain. Encounter Details Date Type Department Care Team Description 09/20/2019 Office Visit [facility] - Jose Bowen, Trigger finger, Junior COR[place] unspecified finger, [facility] [address] unspecified [address] laterality ([place] [address] [place], [place] Dx) [phone] [phone] Allergies Active Allergy Reactions Severity Noted Date Comments Codeine GI Reaction High 01/18/2013 Penicillins Rash High 01/18/2013 documented as of this encounter (statuses as of 09/20/2019) Medications Medication Sig Dispensed Refills Start Date End Date Status simvastatin (ZOCOR) 40 Take 40 mg by 0 Active MG Oral Tab mouth EVERY BEDTIME. Aspirin 81 MG Oral Tab Take 81 mg by 0 Active mouth. Timolol 0.25 % Place to the 0 Active Ophthalmic Solution external eye. Multiple Take by mouth. 0 Active Vitamins-Minerals (MULTIVITAMIN & MINERAL PO) cyanocobalamin (B-12) Take 100 mcg by 0 Active 100 MCG Oral Tab mouth. metFORMIN (GLUCOPHAGE) Take 850 mg by 0 Active 850 MG Oral Tab mouth. lisinopril (PRINIVIL, Take 20 mg by 0 Active ZESTRIL) 20 MG Oral Tab mouth DAILY. amLodipine (NORVASC) 5 Take 5 mg by 0 Active MG Oral Tab mouth DAILY. Travoprost, MAGNUS Free, Place to the 0 Active (TRAVATAN Z) 0.004 % external eye. Ophthalmic Solution methylPREDNISolone, Take as directed 21 Tab 0 08/23/2019 Active dose-gisele, (MEDROL) 4 MG Oral Tablet Therapy Pack documented as of this encounter (statuses as of 09/20/2019) Active Problems Problem Noted Date Primary osteoarthritis of right knee 04/15/2017 Status post total left knee replacement using cement 03/21/2017 Left knee pain 02/25/2017 Chronic pain of left knee 01/28/2017 Status post total left knee replacement 03/23/2016 Contusion of right hip 02/11/2016 Contusion of left knee 02/11/2016 documented as of this encounter (statuses as of 09/20/2019) Social History Tobacco Use Types Packs/Day Years Used Date Former Smoker Cigarettes 0.5 Quit: 01/18/1966 Smokeless Tobacco: Never Used Tobacco Cessation: Counseling Given: No Alcohol Use Drinks/Week oz/Week Comments Yes 2 Glasses of wine 2.0 Sex Assigned at Date Recorded Not on file Job Start Date Occupation Industry Not on file Not on file Not on file Travel History Travel Start Travel End No recent travel history available. documented as of this encounter Last Filed Vital Signs Vital Sign Reading Time Taken Comments Blood Pressure 127/84 09/20/2019 10:45 AM EST Pulse 73 09/20/2019 10:45 AM EST Temperature - - Respiratory Rate - - Oxygen Saturation - - Inhaled Oxygen Concentration - - Weight 77.1 kg (170 lb) 09/20/2019 10:45 AM EST Height 162.6 cm (5' 4") 09/20/2019 10:45 AM EST Body Mass Index 29.18 09/20/2019 10:45 AM EST documented in this encounter Progress Notes Jose Bowen MD - 09/20/2019 10:30 AM EST Name: Xuan Peters : 1940 Date of service: 09/20/2019 Chief Complaint Patient presents with Follow-up F/U Left hand pain. State's she can close her hand completely. No c/o pain. HPI: Xuan Peters is a 79-y.o. y/o female, who presents at the request of Jose Bowen for evaluation. Patient had a injection on her last visit to clinic. She has had almost full relief of symptoms she is happy with her result. She does have rheumatoid arthritis and states that the pain in her ankle and knee has also improved. I suggested she see her senior foreman to discuss with her this new finding as she may need to be on a maintenance medication for her rheumatoid arthritis PAST MEDICAL HISTORY: She has a past medical history of Diabetes mellitus type 2, controlled ([facility]). PAST SURGICAL HISTORY: She has a past surgical history that includes pr reconstruct scaphoid carpalw prosthesis; pr femur/knee surg unlisted; section nec; and pr shoulder surg proc unlisted. MEDICATIONS: Current Outpatient Medications: amLodipine (NORVASC) 5 MG Oral Tab, Take 5 mg by mouth DAILY., Disp: , Rfl: Aspirin 81 MG Oral Tab, Take 81 mg by mouth., Disp: , Rfl: cyanocobalamin (B-12) 100 MCG Oral Tab, Take 100 mcg by mouth., Disp: , Rfl: lisinopril (PRINIVIL, ZESTRIL) 20 MG Oral Tab, Take 20 mg by mouth DAILY., Disp: , Rfl: metFORMIN (GLUCOPHAGE) 850 MG Oral Tab, Take 850 mg by mouth., Disp: , Rfl: methylPREDNISolone, dose-gisele, (MEDROL) 4 MG Oral Tablet Therapy Pack, Take as directed, Disp: 21 Tab, Rfl: 0 Multiple Vitamins-Minerals (MULTIVITAMIN & MINERAL PO), Take by mouth., Disp: , Rfl: simvastatin (ZOCOR) 40 MG Oral Tab, Take 40 mg by mouth EVERY BEDTIME., Disp: , Rfl: Timolol 0.25 % Ophthalmic Solution, Place to the external eye., Disp: , Rfl: Travoprost, MAGNUS Free, (TRAVATAN Z) 0.004 % Ophthalmic Solution, Place to the external eye.,Disp: , Rfl: ALLERGIES: She is allergic to codeine and penicillins. SOCIAL HISTORY: She reports that she quit smoking about 53 years ago. Her smoking use included cigarettes. She smoked 0.50 packs per day. She has never used smokeless tobacco. She reports current alcohol use of about 2.0 standard drinks of alcohol per week. FAMILY HISTORY: family history includes Arthritis in her father; Heart in her father; Thyroid in hermother. ROS: Nursing Notes: Meri Rebolledo LPN 09/20/2019 10:46 AM Signed NAME: Xuan Peters : 1940 DATE OF SERVICE: 09/20/2019 Chief Complaint Patient presents with Follow-up F/U Left hand pain. State's she can close her hand completely. No c/o pain. BP 127/84 | Pulse 73 | Ht 5' 4" (1.626 m) | Wt 170 lb (77.1 kg) | BMI 29.18 kg/m CONSTITUTIONAL: negative. HEENT: negative. EYES: negative RESPIRATORY: negative. CARDIOVASCULAR: negative. GASTROINTESTINAL: negative. GENITOURINARY: negative. INTEGUMENT/BREAST: negative. HEMATOLOGIC/LYMPHATIC: negative. MUSCULOSKELETAL: Negative. NEUROLOGICAL: negative. BEHAVIORAL/PSYCH: negative. ENDOCRINE: negative. ALLERGIC/IMMUNOLOGIC: Negative. Body mass index is 29.18 kg/m. AUTHOR: Meri Rebolledo LPN 09/20/2019 10:46 I reviewed the above and have made changes as appropriate. Physical Exam: Vitals: BP 127/84 Pulse 73 Ht 5' 4" (1.626 m) Wt 170 lb (77.1 kg) BMI 29.18 kg/m2 Gen: NAD, A&Ox3 SKIN/PALPATION: Normal rugal patterns, sweat, turgor, and temperature. Cuticles , nails, nail curvature, and pulp bulk are essentially normal in appearance. No skin changes. SWELLING: none WARMTH: no warmth DEFORMITY: no gross deformity or malalignment NEUROLOGICAL EXAM: Sensation intact to light touch. VASCULAR EXAM: Capillary refill is <2 seconds. No further triggering. Very mild presence of a knot is noted at the A1 shadi location Imaging & Tests: Assessment: ICD-9-CM ICD-10-CM 1. Trigger finger, unspecified finger, unspecified laterality 727.03 M65.30 Triggering improved with injection and splint use Plan & Discussion: --Continue using splint for at least another month I will see the patient back on an as-needed basis Jose Bowen MD Hand Surgery 09/20/2019 documented in this encounter Plan of Treatment Date Type Specialty Care Team Description 10/26/2019 Office Visit Orthopedics Gabe Davison MD [address] [place], [place] [id number] [phone] Health Maintenance Due Date Last Done Comments MEDICARE ANNUAL WELLNESS VISIT 1940 DTaP/Tdap/Td Vaccines (1 - Tdap) 1951 DEPRESSION SCREENING 1952 HIV SCREENING 1955 ZOSTER IMMUNIZATION SERIES (1 of 2) 1990 FALL RISK ASSESSMENT 2005 OSTEOPOROSIS SCREENING 2005 PNEUMOCOCCAL 65+YRS (1 of 2 - 2005 PCV13) INFLUENZA VACCINE (#1) 2019 HEPATITIS A IMMUNIZATION SERIES Aged Out No longer eligible based on patient's age to complete this topic HPV IMMUNIZATION SERIES Aged Out No longer eligible based on patient's age to complete this topic MENINGOCOCCAL VACCINE IMM Aged Out No longer eligible based on patient's age to complete this topic documented as of this encounter Results Not on filedocumented in this encounter Visit Diagnoses Diagnosis Trigger finger, unspecified finger, unspecified laterality documented in this encounter Insurance Payer Benefit Plan / Subscriber ID Effective Dates Phone Address Type Group MVP GOLD MEDICARE MVP GOLD MEDICARE xxxxxxxxxxx 2016-Present [facility] ADVANTAGE ADVANTAGE Guarantor Name Account Type Relation to Date of Phone Billing Patient Address LorraineXuan Personal/Family 1940 [address] (Home) [place], [place] [phone] [id number] (Work) documented as of this encounter
[2019-10-23 13:01] VITALS: BP 168/76
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
== END 2019-10-23 13:55 | disposition home health service (06) ==
LOC: UCEAST 10:15
DX: R10.31 Right lower quadrant pain (principal); R10.11 Right upper quadrant pain; E11.9 Type 2 diabetes mellitus without complications; E78.5 Hyperlipidemia, unspecified; I10 Essential (primary) hypertension; Z88.0 Allergy status to penicillin; Z88.5 Allergy status to narcotic agent; Z88.8 Allergy status to other drugs, medicaments and biological substances; Z79.82 Long term (current) use of aspirin; Z87.891 Personal history of nicotine dependence; Z79.84 Long term (current) use of oral hypoglycemic drugs; Z79.899 Other long term (current) drug therapy
CPT/HCPCS: 81003; 99212; G0463

== ENCOUNTER 2019-10-23 14:17 | Emergency (ER) | payer MEDICARE ==
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
[2019-10-23 16:33] LABS: ABS Basophils 0.1 10^3/ul (0-0.2); ABS Eosinophils 0.2 10^3/ul (0-0.6); ABS Lymphocytes 2.9 10^3/ul (1.0-4.8); ABS Monocytes 0.9 10^3/ul (0-0.8); ABS Neutrophils 5.1 10^3/ul (1.5-7.7); Eosinophil % 2.2 %; Hematocrit 34 % (35-47); Hemoglobin 11.7 g/dL (12.0-16.0); Lymphocyte % 31.6 %; Mean Corpuscular HGB Conc 34 g/dL (31-36); Mean Corpuscular Hemoglobin 32 pg (27-31); Mean Corpuscular Volume 92 fL (80-97); Mean Platelet Volume 7.7 fL (7.4-10.4); Nucleated Red Blood Cells % 0.1; Platelet Count 268 10^3/uL (150-450); Red Cell Distribution Width 15 % (10-15); White Blood Count 9.1 10^3/uL (3.5-10.8)
[2019-10-23 16:46] LABS: ALT 14 U/L (7-52); AST 16 U/L (13-39); Albumin 4.2 g/dL (3.2-5.2); Albumin/Globulin Ratio 1.6 (1-3); Alkaline Phosphatase 66 U/L (34-104); Anion Gap 7 mmol/L (2-11); BUN/Creatinine Ratio 30.2 (8-20); Blood Urea Nitrogen 19 mg/dL (6-24); CO2 Carbon Dioxide 27 mmol/L (22-32); Calcium 9.6 mg/dL (8.6-10.3); Chloride 105 mmol/L (101-111); EGFR African American 110.3 (>60); EGFR Non-African American 91.2 (>60); Globulin 2.6 g/dL (2-4); Glucose 122 mg/dL (70-100); Potassium 3.6 mmol/L (3.5-5.0); Sodium 139 mmol/L (135-145); Total Protein 6.8 g/dL (6.4-8.9)
[2019-10-23] MEDS ORDERED: Iodixanol* (CONTRAST) 320 MG/ML 100 ML SDV IV ONE (17:01)
[2019-10-23 18:55] VITALS: BP 130/100
[2019-10-25 12:12] LABS: C Reactive Protein 4.46 mg/L (<8.01)
== END 2019-10-23 18:54 | disposition home or self-care (01) ==
LOC: ED 14:17
DX: R10.9 Unspecified abdominal pain (principal); K59.00 Constipation, unspecified; E11.9 Type 2 diabetes mellitus without complications; I10 Essential (primary) hypertension; Z79.82 Long term (current) use of aspirin; Z79.899 Other long term (current) drug therapy; Z87.891 Personal history of nicotine dependence; Z88.0 Allergy status to penicillin; Z88.6 Allergy status to analgesic agent
CPT/HCPCS: 36415; 74177; 80053; 83690; 85025; 86140; 99283; Q9967